=== PATIENT | female | born 1960 | race Two or more races ===

== ENCOUNTER 2023-08-31 12:00 | Emergency (ER) | payer MEDICAID ==
[~2023-08-31] VITALS: Ht 157.5 cm; Wt 116.1 kg
[2023-08-31 12:27] LABS: BASOPHILS # (AUTO) 0.1 K/uL (0.0-0.2); BASOPHILS % (AUTO) 1.4 % (0.0-2.0); EOSINOPHILS % (AUTO) 0.1 % (0.0-6.0); HEMATOCRIT 36 % (33-45); HEMOGLOBIN 12.2 g/dL (11.5-14.8); LYMPHOCYTES # (AUTO) 2.9 K/uL (0.8-4.8); LYMPHOCYTES % (AUTO) 35.7 % (20.0-44.0); MEAN CORPUSCULAR HEMOGLOBIN 31 PG (26.0-33.0); MEAN CORPUSCULAR HGB CONC 34 g/dl (31.0-36.0); MEAN CORPUSCULAR VOLUME 93 fL (82-100); MONOCYTES # (AUTO) 0.7 K/uL (0.1-1.30); MONOCYTES % (AUTO) 8.6 % (2.0-12.0); NEUTROPHILS # (AUTO) 4.4 K/uL (1.8-8.9); NEUTROPHILS % (AUTO) 54.2 % (43.0-81.0); PLATELET COUNT (AUTO) 235 K/uL (150-450); RED BLOOD CELL COUNT(AUTO) 3.92 MIL/uL (4.0-5.2); RED CELL DISTRIBUTION WIDTH 13.9 % (11.5-15.0); WHITE BLOOD COUNT (AUTO) 8.2 K/uL (4.3-11.0)
[2023-08-31] MEDS ORDERED: IV NS 0.9% 1,000 ML BAG IV ONE (12:30)
[2023-08-31 12:46] LABS: ALBUMIN 3.6 g/dL (3.4-5.0); BILIRUBIN,TOTAL 0.4 mg/dL (0.2-1.0); CALCIUM, SERUM 9.3 mg/dL (8.5-10.1); CREATININE 1.1 mg/dL (0.6-1.3); POTASSIUM 4.2 mmol/L (3.5-5.1); TOTAL PROTEIN, SERUM 7.5 g/dL (6.4-8.2)
[2023-08-31 14:18] VITALS: BP 131/79; TEMP 98.2; O2SAT 98
== END 2023-08-31 14:23 | disposition short-term general hospital (02) ==
LOC: ER 12:26
DX: T20.25XA Burn of second degree of scalp [any part], initial encounter (principal); T20.212A Burn of second degree of left ear [any part, except ear drum], initial encounter; T20.211A Burn of second degree of right ear [any part, except ear drum], initial encounter; K21.9 Gastro-esophageal reflux disease without esophagitis; F32.A Depression, unspecified; F17.210 Nicotine dependence, cigarettes, uncomplicated; X08.8XXA Exposure to other specified smoke, fire and flames, initial encounter; Y93.89 Activity, other specified; Y92.89 Other specified places as the place of occurrence of the external cause; Y99.8 Other external cause status
CPT/HCPCS: 99291; 96360; 85025; 36415; 80053; J7030

== ENCOUNTER 2024-09-19 16:53 | Emergency (ER) | payer MEDICAID ==
[~2024-09-19] VITALS: Ht 165.1 cm; Wt 104.3 kg
[2024-09-19] MEDS ORDERED: IBUPROFEN 600 MG TABLET ONE (17:28)
[2024-09-19] MEDS: IBUPROFEN 600 MG TABLET PO ONE (17:30)
[2024-09-19 20:39] VITALS: BP 120/69; TEMP 98.1; O2SAT 100
== END 2024-09-19 20:41 ==
LOC: ER 16:56
DX: M25.531 Pain in right wrist (principal); K21.9 Gastro-esophageal reflux disease without esophagitis; F17.200 Nicotine dependence, unspecified, uncomplicated
CPT/HCPCS: 73110; 73130-TC

== ENCOUNTER 2024-12-03 15:38 | Inpatient (IN) | payer MEDICAID ==
[~2024-12-03] VITALS: Ht 157.5 cm; Wt 113.1 kg
[2024-12-03] MEDS: IV NS 0.9% 1,000 ML BAG IV ONE ×2 (16:10→17:24)
[2024-12-03 16:37] LABS: BASOPHILS % (AUTO) 0.7 % (0.0-2.0); HEMATOCRIT 34 % (33-45); HEMOGLOBIN 10.9 g/dL (11.5-14.8); LYMPHOCYTES # (AUTO) 1.5 K/uL (0.8-4.8); LYMPHOCYTES % (AUTO) 23.8 % (20.0-44.0); MEAN CORPUSCULAR HEMOGLOBIN 29 PG (26.0-33.0); MEAN CORPUSCULAR HGB CONC 33 g/dl (31.0-36.0); MEAN CORPUSCULAR VOLUME 88 fL (82-100); MONOCYTES # (AUTO) 0.6 K/uL (0.1-1.30); MONOCYTES % (AUTO) 8.7 % (2.0-12.0); NEUTROPHILS # (AUTO) 4.4 K/uL (1.8-8.9); NEUTROPHILS % (AUTO) 66.8 % (43.0-81.0); PLATELET COUNT (AUTO) 152 K/uL (150-450); RED BLOOD CELL COUNT(AUTO) 3.79 MIL/uL (4.0-5.2); RED CELL DISTRIBUTION WIDTH 17.7 % (11.5-15.0); WHITE BLOOD COUNT (AUTO) 6.5 K/uL (4.3-11.0)
[2024-12-03 16:39] LABS: CALCIUM, SERUM 8.5 mg/dL (8.5-10.1); CARBON DIOXIDE 24 mmol/L (21-32); CHLORIDE 107 mmol/L (98-107); CREATININE 2.8 mg/dL (0.6-1.3); GLUCOSE 124 mg/dL (74-106); POTASSIUM 5.2 mmol/L (3.5-5.1); SODIUM SERUM 145 mmol/L (136-145); UREA NITROGEN, BLOOD 57 mg/dL (7-18)
[2024-12-03 16:43] LABS: INR 1.01 (0.91-1.10); PARTIAL THROMBOPLASTIN TIME 24.6 SEC (24.3-34.3); PROTHROMBIN TIME 10.7 SECS (9.2-11.1)
[2024-12-03 16:52] LABS: ALANINE AMINOTRANSFERASE 53 U/L (12-78); ALBUMIN 3.2 g/dL (3.4-5.0); ALKALINE PHOSPHATASE 103 U/L (46-116); ASPARTATE AMINOTRANSFERASE 89 U/L (15-37); BILIRUBIN,DIRECT 0.2 mg/dL (0.0-0.2); BILIRUBIN,TOTAL 0.4 mg/dL (0.2-1.0); TOTAL PROTEIN, SERUM 6.9 g/dL (6.4-8.2)
[2024-12-03 16:53] LABS: LACTIC ACID 2.4 mmol/L (0.4-2.0)
[2024-12-03] MEDS ORDERED: HYDR453. TP (17:15)
[2024-12-03] MEDS ORDERED: QUET300T2 PO (17:15)
[2024-12-03] MEDS ORDERED: OLAN10TA3 PO (17:15)
[2024-12-03] MEDS ORDERED: BUPR100T6 PO (17:15)
[2024-12-03] MEDS ORDERED: OMEP40CA21 PO (17:15)
[2024-12-03] MEDS ORDERED: QUET100T PO (17:15)
[2024-12-03] MEDS ORDERED: LORA-259 PO (17:15)
[2024-12-03] MEDS ORDERED: MINE107C TP (17:15)
[2024-12-03] MEDS ORDERED: DIFLUCAN TP (17:15)
[2024-12-03] MEDS ORDERED: SERT50TA PO (17:15)
[2024-12-03] MEDS ORDERED: IBUP-1955 PO (17:15)
[2024-12-03] MEDS ORDERED: LISI-768 PO (17:15)
[2024-12-03] MEDS ORDERED: METO25TA6 PO (17:15)
[2024-12-03] MEDS ORDERED: ATOR40TA GT (17:15)
[2024-12-03 19:15] LABS: ADD URINE CULTURE YES; APPEARANCE,URINE CLEAR (CLEAR); BACTERIA,URINE Few /HPF (None Seen); BILIRUBIN,URINE NEGATIVE (NEGATIVE); BLOOD, URINE NEGATIVE Ery/uL (NEGATIVE); COLOR,URINE YELLOW (YELLOW); KETONES,URINE NEGATIVE (NEGATIVE); LEUKOCYTE ESTERASE ,URINE 1+ (NEGATIVE); NITRITE, URINE NEGATIVE (NEGATIVE); PROTEIN,URINE NEGATIVE (NEGATIVE); RBC,URINE 0-2 /HPF (0-2); UGLUCOSE NEGATIVE (NEGATIVE); UROBILINOGEN,URINE 0.2 EU/dL (0.2)
[2024-12-03 19:16] LABS: SQUAMOUS EPITHELIAL CELL,UR Few /HPF (None Seen)
[2024-12-03] MEDS: CEFTRIAXONE 2 G in IV D5W 100 ML IV SCH (20:00)
[2024-12-03] MEDS ORDERED: Z GUARD REMEDY 4 OZ OINT TP PRN (20:00)
[2024-12-03] MEDS ORDERED: ACETAMINOPHEN 325 MG TABLET PO PRN (20:00)
[2024-12-03] MEDS ORDERED: ONDANSETRON HCL/PF 4 MG/2 ML VIAL IVP PRN (20:00)
[2024-12-03] MEDS ORDERED: MAGNESIUM HYDROXIDE 30 ML UDC PO PRN (20:00)
[2024-12-03] MEDS ORDERED: IV D5/0.45 NACL 1,000 ML IV PRN (20:00)
[2024-12-03] MEDS ORDERED: MAG HYDROX/AL HYDROX/SIMETH 30 ML UDC PO PRN (20:00)
[2024-12-03] MEDS ORDERED: CEFTRIAXONE 1 G VIAL ONE (20:38)
[2024-12-03] MEDS: OLANZAPINE 10 MG TABLET PO SCH (22:00)
[2024-12-03] MEDS: QUETIAPINE FUMARATE 100 MG TABLET PO SCH (22:00)
[2024-12-03] MEDS: IV D5/0.45 NACL 1,000 ML IV SCH (22:00)
[2024-12-03] MEDS: SERTRALINE HCL 50 MG TABLET PO SCH (22:00)
[2024-12-03] MEDS ORDERED: OLANZAPINE 5 MG TABLET ONE (22:13)
[2024-12-03] MEDS ORDERED: QUETIAPINE FUMARATE 100 MG TABLET ONE (22:13)
[2024-12-03] MEDS ORDERED: QUETIAPINE FUMARATE 25 MG TABLET ONE (22:15)
[2024-12-03] MEDS: SERTRALINE HCL 50 MG TABLET ONE (22:29)
[2024-12-04] MEDS: PANTOPRAZOLE 40 MG TABLET.DR PO SCH (07:30)
[2024-12-04] MEDS: buPROPion SR 100 MG TABLET.ER PO SCH (09:00)
[2024-12-04] MEDS: QUETIAPINE FUMARATE 100 MG TABLET PO SCH (09:00)
[2024-12-04] MEDS ORDERED: Medication Not On Formulary EA (Omeprazole 40 MG) PO SCH (09:00)
[2024-12-04] MEDS ORDERED: HEPARIN SODIUM, PORCINE 5000 UNITS/1 ML VIAL ONE (09:32)
[2024-12-04] MEDS ORDERED: PANTOPRAZOLE 40 MG TABLET.DR PO ONE (09:32)
[2024-12-04 09:36] LABS: BASOPHILS % (AUTO) 0.7 % (0.0-2.0); EOSINOPHILS % (AUTO) 0.1 % (0.0-6.0); HEMATOCRIT 32 % (33-45); HEMOGLOBIN 10.7 g/dL (11.5-14.8); LYMPHOCYTES % (AUTO) 37.6 % (20.0-44.0); MEAN CORPUSCULAR HEMOGLOBIN 29 PG (26.0-33.0); MEAN CORPUSCULAR HGB CONC 33 g/dl (31.0-36.0); MEAN CORPUSCULAR VOLUME 87 fL (82-100); MONOCYTES # (AUTO) 0.6 K/uL (0.1-1.30); MONOCYTES % (AUTO) 10.6 % (2.0-12.0); NEUTROPHILS # (AUTO) 2.8 K/uL (1.8-8.9); PLATELET COUNT (AUTO) 146 K/uL (150-450); RED BLOOD CELL COUNT(AUTO) 3.72 MIL/uL (4.0-5.2); RED CELL DISTRIBUTION WIDTH 17.6 % (11.5-15.0); WHITE BLOOD COUNT (AUTO) 5.4 K/uL (4.3-11.0)
[2024-12-04] MEDS: HEPARIN SODIUM, PORCINE 5000 UNITS/1 ML VIAL SQ SCH (09:53)
[2024-12-04 10:14] LABS: CALCIUM, SERUM 8.1 mg/dL (8.5-10.1); CREATININE 1.7 mg/dL (0.6-1.3); MAGNESIUM 1.3 mg/dL (1.8-2.4); PHOSPHORUS 3.2 mg/dL (2.5-4.9); POTASSIUM 4.7 mmol/L (3.5-5.1)
[2024-12-04 10:40] VITALS: BP 130/75; TEMP 98.2; O2SAT 98
[2024-12-04] MEDS: SODIUM ZIRCONIUM CYCLOSILICATE 10 GM POWD.PACK PO ONE (11:41)
[2024-12-04 16:32] LABS: THYROID STIMULATING HORMONE 0.49 uIU/mL (0.358-3.74)
[2024-12-04] MEDS: CLOTRIMAZOLE 1% 15 GM TUBE TP SCH (16:37)
[2024-12-04 20:00] VITALS: BP 116/77; TEMP 98.2; O2SAT 96
[2024-12-05 07:03] LABS: BILIRUBIN,TOTAL 0.3 mg/dL (0.2-1.0); CALCIUM, SERUM 8.5 mg/dL (8.5-10.1); CREATININE 1.3 mg/dL (0.6-1.3); POTASSIUM 4.1 mmol/L (3.5-5.1); TOTAL PROTEIN, SERUM 6.8 g/dL (6.4-8.2)
[2024-12-05 07:10] LABS: BASOPHILS % (AUTO) 0.4 % (0.0-2.0); EOSINOPHILS % (AUTO) 0.1 % (0.0-6.0); HEMATOCRIT 32 % (33-45); HEMOGLOBIN 10.8 g/dL (11.5-14.8); LYMPHOCYTES # (AUTO) 2.1 K/uL (0.8-4.8); LYMPHOCYTES % (AUTO) 42.9 % (20.0-44.0); MEAN CORPUSCULAR HEMOGLOBIN 29 PG (26.0-33.0); MEAN CORPUSCULAR HGB CONC 33 g/dl (31.0-36.0); MEAN CORPUSCULAR VOLUME 87 fL (82-100); MONOCYTES # (AUTO) 0.5 K/uL (0.1-1.30); MONOCYTES % (AUTO) 10.2 % (2.0-12.0); NEUTROPHILS # (AUTO) 2.3 K/uL (1.8-8.9); NEUTROPHILS % (AUTO) 46.4 % (43.0-81.0); PLATELET COUNT (AUTO) 156 K/uL (150-450); RED CELL DISTRIBUTION WIDTH 17.3 % (11.5-15.0)
[2024-12-05 07:24] LABS: MAGNESIUM 1.1 mg/dL (1.8-2.4)
[2024-12-05 08:00] VITALS: BP 122/61; TEMP 98.1; O2SAT 95
[2024-12-05] MEDS: Magnesium 1GM/D5W 100ML PREMIX PIGGYBACK IV SCH (10:30)
[2024-12-05 12:20] LABS: HIV-1 p24 ANTIGEN NON REACTIVE (NONREACTIVE); HIV-1/2 ANTIBODY NON REACTIVE (NONREACTIVE)
[2024-12-05 16:58] VITALS: BP 116/66; TEMP 98.1; O2SAT 94
[2024-12-05] MEDS: OLANZAPINE 10 MG TABLET PO SCH (17:06)
[2024-12-06 05:13] LABS: RAPID PLASMA REAGIN QUAL. Non Reactive (Non Reactive)
[2024-12-06 12:08] LABS: PTH, INTACT 42 pg/mL (15-65)
== END 2024-12-05 17:47 | DRG 422 ==
LOC: ER 15:42 → TRANSITION 12-04 02:07 → TELE 12-04 08:59 → MED 12-04 11:06
PROVIDERS: ATTEND Nurse Practitioner Family
DX: E86.0 Dehydration (principal); G93.41 Metabolic encephalopathy; E87.20 Acidosis, unspecified; E11.649 Type 2 diabetes mellitus with hypoglycemia without coma; N17.9 Acute kidney failure, unspecified; E44.1 Mild protein-calorie malnutrition; E11.22 Type 2 diabetes mellitus with diabetic chronic kidney disease; N39.0 Urinary tract infection, site not specified; I95.9 Hypotension, unspecified; B96.89 Other specified bacterial agents as the cause of diseases classified elsewhere; E88.09 Other disorders of plasma-protein metabolism, not elsewhere classified; D64.9 Anemia, unspecified; E66.9 Obesity, unspecified; I12.9 Hypertensive chronic kidney disease with stage 1 through stage 4 chronic kidney disease, or unspecified chronic kidney disease; N18.9 Chronic kidney disease, unspecified; E78.5 Hyperlipidemia, unspecified; E87.5 Hyperkalemia; K21.9 Gastro-esophageal reflux disease without esophagitis; M89.8X9 Other specified disorders of bone, unspecified site; F32.A Depression, unspecified; F39 Unspecified mood [affective] disorder
CPT/HCPCS: 36415; 70450-TC; 71045-TC; 76770-TC; 80048-TC; 80053-TC; 80076-TC; 81001; 82140-TC; 82550-TC; 82553; 82607-TC; 82728-TC; 82962-TC; 83540-TC; 83605-TC; 83735-TC; 83921; 83970; 84100-TC; 84155; 84165; 84443-TC; 84484-TC; 85025-TC; 85730-TC; 86592; 86593; 86803; 87040-TC; 87081-TC; 87340; 87806; 97110-TC; 97116-TC; 97530-TC; A4223; G0378; J0696; J1644; J3475; J3490; J7030; J7060

== ENCOUNTER 2025-07-08 11:13 | Emergency (ER) | payer MEDICAID, OTHER ==
[~2025-07-08] VITALS: Ht 162.6 cm; Wt 112.5 kg
[~2025-07-08 11:13] MED LIST: ATOR40TA GT; BUPR100T6 PO; DIFLUCAN TP; HYDR453. TP; IBUP-1955 PO; LISI-768 PO; LORA-259 PO; METO25TA6 PO; MINE107C TP; OLAN10TA3 PO; OMEP40CA21 PO; QUET100T PO; QUET300T2 PO; SERT50TA PO
[2025-07-08 11:19] VITALS: BP 107/67; TEMP 98.1
[2025-07-08] MEDS ORDERED: ACETAMINOPHEN 325 MG TABLET ONE (11:36)
[2025-07-08] MEDS ORDERED: IBUPROFEN 600 MG TABLET ONE (11:37)
[2025-07-08] MEDS: IBUPROFEN 600 MG TABLET PO ONE (11:40)
[2025-07-08] MEDS: ACETAMINOPHEN 325 MG TABLET PO ONE (11:40)
[2025-07-08] MEDS ORDERED: NAPR-1009 PO (12:14)
[2025-07-08 12:45] VITALS: O2SAT 98
== END 2025-07-08 12:49 ==
LOC: ER 11:20
DX: M17.11 Unilateral primary osteoarthritis, right knee (principal); F17.200 Nicotine dependence, unspecified, uncomplicated; F32.A Depression, unspecified; K21.9 Gastro-esophageal reflux disease without esophagitis; Z79.899 Other long term (current) drug therapy
CPT/HCPCS: 73564-TC